=== PATIENT | male | born 1970 | race Caucasian/White ===

== ENCOUNTER → 2018-12-08 | Outpatient (CLI) | payer MEDICAID ==
--- NOTE | 2018-12-08 19:54 | ECHOF ---
Referral Reason:I10 Hypertension MEASUREMENTS -------- HEIGHT: 182.9 cm WEIGHT: 140.6 kg BP: 144/78 RVIDd: 4.0 cm (< 3.3) IVSd: 1.3 cm (0.6 - 1.1) LVIDd: 4.7 cm (3.9 - 5.3) LVPWd: 1.1 cm (0.6 - 1.1) IVSs: 1.8 cm LVIDs: 3.2 cm LVPWs: 1.7 cm LA Diam: 3.4 cm (2.7 - 3.8) LAESV Index (A-L): 20.58 ml/m Ao Diam: 3.6 cm (2.0 - 3.7) AV Cusp: 2.5 cm (1.5 - 2.6) MV EXCURSION: 14.382 mm (> 18.000) MV EF SLOPE: 76 mm/s (70 - 150) EPSS: 0.6 cm MV E Rodrigo: 0.62 m/s MV DecT: 244 ms MV A Rodrigo: 0.71 m/s MV E/A Ratio: 0.87 RAP: 5.00 mmHg RVSP: 17.37 mmHg FINDINGS -------- Sinus rhythm. This was a technically good study. The left ventricular size is normal. There is mild concentric left ventricular hypertrophy. Overa ll left ventricular systolic function is normal with, an EF between 60 - 65 %. The right ventricle is moderately enlarged. Normal LA size by volume 22+/-6 ml/m2. The right atrium is normal in size. The aortic valve is trileaflet and appears structurally normal. The mitral valve is normal. Mild tricuspid regurgitation present. Right ventricular systolic pressure is normal at < 35 mmHg. Trace/mild (physiologic) pulmonic regurgitation. The aortic root size is normal. IVC Not well visulized. There is no pericardial effusion. CONCLUSIONS -------- 1. Sinus rhythm. 2. This was a technically good study. 3. The left ventricular size is normal. 4. There is mild concentric left ventricular hypertrophy. 5. Overall left ventricular systolic function is normal with, an EF between 60 - 65 %. 6. The right ventricle is moderately enlarged. 7. Normal LA size by volume 22+/-6 ml/m2. 8. The right atrium is normal in size. 9. The aortic valve is trileaflet and appears structurally normal. 10. The mitral valve is normal. 11. Mild tricuspid regurgitation present. 12. Right ventricular systolic pressure is normal at < 35 mmHg. 13. Trace/mild (physiologic) pulmonic regurgitation. 14. The aortic root size is normal. 15. IVC Not well visulized. 16. There is no pericardial effusion. CAR UNLOADER HELPER: Gissell Vizcarra RDCS
--- NOTE | 2018-12-08 22:07 | EST ---
EXERCISE STRESS DATE OF TEST: 12/08/2018 AGE: 48 SEX: Male. HT: 72 WT: 300 PROTOCOL: [place]. STAGE: 3 DURATION OF EXERCISE: 7:00 HEART RATE REST: 71 BLOOD PRESSURE REST: 144/107 MAXIMUM HEART RATE ACHIEVED: 157 MAXIMUM BLOOD PRESSURE: 189/84 85% MPHR: 148 100% MPHR: 174 METS: 8.5 INDICATIONS: Chest pain. CLINICAL INFORMATION: Patient was exercised for a total period of 7 minutes. Peak heart rate of 156 was achieved. Maximum blood pressure of 189/84 mmHg was noted. Resting EKG shows normal sinus rhythm with normal AR interval and QRS duration and normal ST-T waves. No ST- segment depression suggestive of ischemia is noted. Occasional PVCs are noted. FINAL IMPRESSION: 1. This exercise test is not suggestive of ischemia. 2. Patient's exercise tolerance is normal. 3. Patient did not complain of any anginal pain during the test. 4. Isolated PVCs were recorded. MMODL / IJN: [id number] /
== END ==
LOC: RADNMMAIN 10:44
PROVIDERS: ATTEND Internal Medicine
DX: I07.1 Rheumatic tricuspid insufficiency (principal); I37.1 Nonrheumatic pulmonary valve insufficiency; I49.3 Ventricular premature depolarization; I10 Essential (primary) hypertension
CPT/HCPCS: 93017; 93306

== ENCOUNTER → 2023-12-15 | Outpatient (CLI) | payer BC ==
--- NOTE | 2023-12-15 09:34 | US ---
EXAMINATION TYPE: US liver DATE OF EXAM: 12/15/2023 COMPARISON: NONE CLINICAL INDICATION: Male, 53 years old with history of R94.5 ABNORMAL RESULTS OF LIVER FUNCTION STUD IES; LFTs TECHNIQUE: Multiple sonographic images of the right upper quadrant are obtained. FINDINGS: EXAM MEASUREMENTS: Liver Length: 12.6 cm Gallbladder Wall: 0.2 cm CBD: 0.2 cm Right Kidney: 10.4x5.2x5.2 cm DESIGN ASSEMBLER NOTES: Pancreas: Tail obscured by overlying bowel gas Liver: wnl, as best visualized Gallbladder: wnl, as best visualized Evidence for sonographic Ziegler's sign: No CBD: wnl Right Kidney: wnl exam limited by body habitus and bowel gas IMPRESSION: No evidence for acute process.
== END | disposition home or self-care (01) ==
LOC: RADUSWWP 07:32
PROVIDERS: ATTEND Internal Medicine
DX: R94.5 Abnormal results of liver function studies (principal)
CPT/HCPCS: 76705

== ENCOUNTER → 2024-01-28 | Day surgery (SDC) | payer BC, MEDICAID, OTHER ==
[2024-01-23 15:54] VITALS: BMI 33.2
[~2024-01-28] MED LIST: LIDOCAINE 1% (10MG/ML) FOR IV START INTRADERMA PRN; ONDANSETRON 4 MG/2 ML VIAL IVP PRN; PROPOFOL 10 MG/ML 20 ML VIAL IV ONE
[2024-01-28] MEDS: LACTATED RINGERS 1,000 ML IV SCH (08:22)
[2024-01-28 08:56] VITALS: TEMP 97.1
--- NOTE | 2024-01-28 09:25 | P.PCN ---
Date of Procedure: 01/28/24 Procedure(s) Performed: BRIEF HISTORY: Patient is [id number] pleasant white male scheduled for an elective colonoscopy as a part of screening for colon cancer. PROCEDURE PERFORMED: Colonoscopy. PREOPERATIVE DIAGNOSIS: Screening for colon cancer. IV sedation per Anesthesia. PROCEDURE: After informed consent was obtained, the patient, was brought into the endoscopy unit. IV sedation was administered by Anesthesia under continuous monitoring. Digital rectal examination was normal. Initially the Olympus CF-160 flexible video colonoscope was then inserted in the rectum, gradually advanced into the cecum without any difficulty. Careful examination was performed as the scope was gradually being withdrawn. Ileocecal valve and the appendiceal orifice were visualized and appeared normal. Prep was excellent. Mucosa of the cecum, ascending colon, transverse colon, descending colon, sigmoid colon, and rectum appeared normal. Retroflexion was performed in the rectum and no lesions were seen. The patient tolerated the procedure well. IMPRESSION: Normal-appearing colon from rectum to cecum with no evidence of colorectal neoplasia. RECOMMENDATIONS: Findings of this examination were discussed with the patient as well as the family .He was advised to have a repeat screening colonoscopy in 10 years..
[2024-01-28 09:52] VITALS: RESP 18
[2024-01-28 09:53] VITALS: BP 116/79; PULSE 52
== END ==
LOC: ORWHC2ENDO 07:46
PROVIDERS: ATTEND Internal Medicine Gastroenterology
DX: Z12.11 Encounter for screening for malignant neoplasm of colon (principal); I10 Essential (primary) hypertension; E78.5 Hyperlipidemia, unspecified; Z79.899 Other long term (current) drug therapy; Z98.84 Bariatric surgery status
CPT/HCPCS: 45378; J2704

== ENCOUNTER → 2024-11-04 | Outpatient (CLI) | payer BC ==
--- NOTE | 2024-11-04 14:57 | US ---
EXAMINATION TYPE: US carotid duplex BILAT DATE OF EXAM: 11/04/2024 COMPARISON: NONE CLINICAL INDICATION: Male, 54 years old with history of I77.9 DISORDER OF ARTERIES AND ARTERIOLES; Pt states dentist possibly saw abnormality of carotids on xray in office Additional History: .... TECHNIQUE: Grayscale, color Doppler and spectral Doppler evaluation of the bilateral carotid systems and vertebral arteries. Indirect Doppler criteria was utilized. FINDINGS: EXAM MEASUREMENTS: RIGHT: Peak Systolic Velocity (PSV) cm/sec ----- Right CCA: 103 ----- Right ICA: 78.0 ----- Right ECA: 85.5 ICA/CCA ratio: 0.8 RIGHT: End Diastole cm/sec ----- Right CCA: 17.5 ----- Right ICA: 28.1 ----- Right ECA: 13.8 LEFT: Peak Systolic Velocity (PSV) cm/sec ----- Left CCA: 119 ----- Left ICA: 83.6 ----- Left ECA: 80.2 ICA/CCA ratio: 0.7 LEFT: End Diastole cm/sec ----- Left CCA: 24.9 ----- Left ICA: 33.4 ----- Left ECA: 12.8 VERTEBRALS (direction of flow): Right Vertebral: Antegrade Left Vertebral: Antegrade Rhythm: Normal TECHNICAL SALES CONSULTANT NOTES: No significant stenosis seen Color Doppler imaging shows patency with blood flow throughout the carotid artery. Spectral waveforms are within normal limits. IMPRESSION: Right: No hemodynamically significant stenosis. Left: No hemodynamically significant stenosis. Criteria for Assigning % of Stenosis / Diameter reduction (Estimation based on the indirect measurements of the internal carotid artery velocities (ICA PSV). 1. Normal (no stenosis)=ICA PSV < 125 cm/s: ratio < 2.0: ICA EDV<40 cm/s. 2. Less than 50% stenosis=ICA PSV < 125 cm/s: ratio < 2.0: ICA EDV<40 cm/s. 3. 50 to 69% stenosis=ICA PSV of 125 to 230 cm/s: ration 2.0 ? 4.0: ICA EDV 40-100 cm/s. 4. Greater than 70% stenosis to near occlusion= ICA PSV > 230 cm/s: ratio > 4.0: ICA EDV > 100 cm/s. 5. Near occlusion= ICA PSV velocities may be low or undetectable: variable ratio and ICA EDV. 6. Total occlusion=unable to detect flow. [facility], , 11/04/2024 2:54 PM
== END | disposition home or self-care (01) ==
LOC: RADUSWWP 14:26
PROVIDERS: ATTEND Internal Medicine
DX: I77.9 Disorder of arteries and arterioles, unspecified (principal)
CPT/HCPCS: 93880